=== PATIENT | female | born 1960 | race Caucasian/White ===

== ENCOUNTER 2021-12-07 11:37 | Emergency (ER) | payer BC ==
[2021-12-07 13:50] LABS: HEMOGLOBIN 14.9 gm/dl (12.3-15.3); RED BLOOD COUNT 5.17 M/UL (4.00-5.10); WHITE BLOOD COUNT 10.4 K/UL (4.5-11.0)
[2021-12-07 14:10] LABS: BUN/CREATININE RATIO 26 (0-10)
[2021-12-07] MEDS ORDERED: ZOCOR 40 MG TAB40 MG GT (17:22)
[2021-12-07] MEDS ORDERED: ASPIRIN325 MG PO (17:22)
[2021-12-07] MEDS ORDERED: ASPIRIN CHEWABL81 MG PO (17:27)
== END 2021-12-07 17:36 | disposition home or self-care (01) ==
LOC: ER1 11:37
PROVIDERS: Physician Assistant
DX: I63.9 Cerebral infarction, unspecified (principal); I10 Essential (primary) hypertension; F17.210 Nicotine dependence, cigarettes, uncomplicated; Z90.89 Acquired absence of other organs
CPT/HCPCS: 70450; 70551; 80053; 81001; 85025; 99284

== ENCOUNTER → 2021-12-17 | Outpatient (CLI) | payer BC ==
[~2021-12-17] MED LIST: ASPIRIN CHEWABL81 MG PO; ASPIRIN325 MG PO; ZOCOR 40 MG TAB40 MG GT
== END ==
LOC: ECHO 13:15 → US 14:45
DX: I63.9 Cerebral infarction, unspecified (principal); I65.23 Occlusion and stenosis of bilateral carotid arteries
CPT/HCPCS: ECHO; 93306; 93880

== ENCOUNTER → 2022-01-05 | Outpatient (CLI) | payer BC | LOC: KOH-I 12-28 13:30 | DX: F17.210 Nicotine dependence, cigarettes, uncomplicated (principal); R91.1 Solitary pulmonary nodule | CPT/HCPCS: 71271 ==

== ENCOUNTER → 2022-03-04 | Outpatient (CLI) | payer OTHER | LOC: CT 03-03 15:30 | DX: I63.9 Cerebral infarction, unspecified (principal); G51.0 Bell's palsy; I10 Essential (primary) hypertension | CPT/HCPCS: 36415; 70496; 82565; 84520; Q9967 ==